=== PATIENT | female | born 1960 | race Two or more races ===

== ENCOUNTER 2021-09-04 09:54 | Outpatient (CLI) | payer OTHER | END 2021-09-04 15:45 | disposition home or self-care (01) | LOC: LAB 09:54 | PROVIDERS: ATTEND Internal Medicine Hematology & Oncology | DX: C18.1 Malignant neoplasm of appendix (principal); Z80.3 Family history of malignant neoplasm of breast; N80.0 Endometriosis of uterus; R97.0 Elevated carcinoembryonic antigen [CEA]; R19.5 Other fecal abnormalities; I80.222 Phlebitis and thrombophlebitis of left popliteal vein; D50.8 Other iron deficiency anemias; I10 Essential (primary) hypertension; R79.9 Abnormal finding of blood chemistry, unspecified ==

== ENCOUNTER 2021-09-07 22:53 | Emergency (ER) | payer OTHER ==
[~2021-09-07] VITALS: Ht 170.2 cm; Wt 102.1 kg
== END 2021-09-08 12:29 | disposition home or self-care (01) ==
LOC: ER 22:53
DX: I82.502 Chronic embolism and thrombosis of unspecified deep veins of left lower extremity (principal); Z86.73 Personal history of transient ischemic attack (TIA), and cerebral infarction without residual deficits; Z85.43 Personal history of malignant neoplasm of ovary

== ENCOUNTER 2021-09-09 08:17 | Outpatient (CLI) | payer OTHER | END 2021-09-09 08:34 | disposition home or self-care (01) | LOC: RAD 08:17 | PROVIDERS: ATTEND Internal Medicine Hematology & Oncology | DX: C18.1 Malignant neoplasm of appendix (principal); N80.0 Endometriosis of uterus; R97.0 Elevated carcinoembryonic antigen [CEA]; R19.5 Other fecal abnormalities; I80.222 Phlebitis and thrombophlebitis of left popliteal vein; Z80.3 Family history of malignant neoplasm of breast; N63.0 Unspecified lump in unspecified breast; N64.4 Mastodynia; Z12.31 Encounter for screening mammogram for malignant neoplasm of breast | CPT/HCPCS: 71260; 74177; 76641; 77066; Q9965 ==

== ENCOUNTER → 2023-05-24 | Outpatient (CLI) | payer OTHER | END | disposition home or self-care (01) | LOC: MRI 12:35 | PROVIDERS: ATTEND Psychiatry & Neurology Clinical Neurophysiology | DX: E03.9 Hypothyroidism, unspecified (principal); D49.6 Neoplasm of unspecified behavior of brain | CPT/HCPCS: 70551 ==

== ENCOUNTER 2023-10-04 10:19 | Outpatient (CLI) | payer OTHER ==
[~2023-10-04 10:19] MED LIST: AMITRIPTYLINE H25 MG; B TREX; CYANOCOBAL1000 MCG/1; DUI500 PO; ELIQUIS2.5 MG PO; ELIQUIS5 MG PO; FOLIC ACID1 MG; GABAPENTIN300 MG PO; GABAPENTIN600 MG; NEURIN; OMEGA 3 1,0001 EACH PO; PANTOPRAZOLE SO40 MG PO; PERCOCET 5-3251 EACH PO; VITAMIN D31250 MCG; ZANAFLEX2 MG
== END 2023-10-04 10:20 | disposition home or self-care (01) ==
LOC: NUCLEAR 10:19
PROVIDERS: ATTEND Orthopaedic Surgery
DX: I82.402 Acute embolism and thrombosis of unspecified deep veins of left lower extremity (principal)

== ENCOUNTER 2024-07-19 09:44 | Outpatient (CLI) | payer OTHER | END 2024-07-19 09:55 | disposition home or self-care (01) | LOC: RAD 09:44 → SONOGRAMA 09:44 | PROVIDERS: ATTEND Internal Medicine Endocrinology, Diabetes & Metabolism | DX: E04.2 Nontoxic multinodular goiter (principal) ==

== ENCOUNTER 2024-07-20 10:48 | Outpatient (CLI) | payer OTHER | END 2024-07-20 10:59 | disposition home or self-care (01) | LOC: MRI 10:48 | PROVIDERS: ATTEND Internal Medicine | DX: M54.2 Cervicalgia (principal) | CPT/HCPCS: 72141; 72148 ==

== ENCOUNTER 2024-08-22 11:41 | Outpatient (CLI) | payer OTHER | END 2024-08-22 11:46 | disposition home or self-care (01) | LOC: TOM 11:41 | PROVIDERS: ATTEND Neurological Surgery | DX: M54.50 Low back pain, unspecified (principal) ==